=== PATIENT | female | born 1970 | race African-American/Black ===

== ENCOUNTER → 2017-10-09 | Outpatient (CLI) | payer BC ==
--- NOTE | 2017-10-09 14:13 | RAD ---
History: Lower back pain Study: Lumbar spine two views Findings: AP and lateral views of the lumbar spine demonstrate normal alignment. There is mild disc s pace narrowing endplate spurring at the L1-2 level. There are mild degenerative changes of the lower lumbar apophyseal joints. The pedicles are intact and no fracture is seen. Impression: Mild spondylosis not osteoarthrosis of the lumbar spine. Reported By:
--- NOTE | 2017-10-09 14:14 | RAD ---
History: Knee pain Study: Left knee three views Findings: Three views the left knee demonstrates mild narrowing of the medial joint compartment. Ther e is mild spurring from the superior inferior poles of the patella. No fracture, bony destructive pro cess or joint effusion is identified. Impression: Mild osteoarthrosis of the left knee. Reported By:
--- NOTE | 2017-10-09 15:03 | RAD ---
HISTORY: Osteoarthritis of knee Study: Right knee: Three views Comparison: 11/05/2012 Findings: Moderate joint space narrowing is noted in the medial compartment. Very minimal spurring is noted me dially and laterally. Mild spiking of the tibial spines is noted. Mild patellofemoral joint degener ation is noted. IMPRESSION: 1. Degenerative change in the right knee as described above showing interval development since the p rior examination. Reported By:
== END ==
LOC: RAD 12:52
PROVIDERS: ATTEND Internal Medicine
DX: M17.0 Bilateral primary osteoarthritis of knee (principal); M51.36 Other intervertebral disc degeneration, lumbar region
CPT/HCPCS: 72100; 73560